=== PATIENT | female | born 1950 | race Caucasian/White ===

== ENCOUNTER 2020-08-18 00:51 | Inpatient (IN) | payer MEDICARE, OTHER ==
[2020-08-18] MEDS ORDERED: Piperacillin/Tazobactam 4.5 GM VIAL ONE (01:13)
[2020-08-18 01:36] LABS: Bacteria/HPF 4+ HPF (None Seen); Bilirubin Negative (Negative); Blood, Urine Negative (Negative); Clarity Turbid (Clear); Glucose, Urine (Dipstick) Normal (Negative); Ketone, Urine Trace mg/dL (Negative); Leukocyte 75 Leu/uL (Negative); Nitrite Negative (Negative); Protein, Urine (Dipstick) 30 mg/dL (Neg-Trace); RBC/HPF 0-3 HPF (0-3); Specific Gravity, Urine 1.018 (1.002-1.036); Squamous Epithelial 0-3 HPF (0-3); pH, Urine 5.5 (5.0-9.0)
[2020-08-18 01:43] LABS: Mean Corpuscular HGB CONC 31.8 g/dL (32.0-36.0); Mean Corpuscular Volume 94.4 fL (78.0-98.0); Mean Platelet Volume 7.5 fL (7.4-10.4); Platelet Count 270 thou/uL (130-400); RBC Distribution Width 12.9 % (11.5-14.5); Red Blood Cell (RBC) Count 5.01 mill/uL (4.20-5.40); White Blood Cell (WBC) Count 5.6 thou/uL (4.8-10.8)
[2020-08-18 01:56] LABS: ALT (SGPT) 18 U/L (8-55); AST (SGOT) 24 U/L (5-34); Albumin 3.6 g/dL (3.4-4.8); Alkaline Phosphatase 66 U/L (40-110); Anion Gap 18 mmol/L (10-20); BUN (Urea Nitrogen) 38 mg/dL (9.8-20.1); Bilirubin, Total 1.8 mg/dL (0.2-1.2); Calc. Creatinine Clearance 0 mL/min (70-130); Calcium 8.8 mg/dL (7.8-10.44); Carbon Dioxide 21 mmol/L (23-31); Chloride 104 mmol/L (98-107); Estimated GFR-MDRD 31; Globulin 2.8 g/dL (2.4-3.5); Glucose 94 mg/dL (80-115); Potassium 4.5 mmol/L (3.5-5.1); Protein, Total 6.4 g/dL (6.0-8.3); Sodium 138 mmol/L (136-145)
[2020-08-18 02:02] LABS: Band 31 % (5-11); Eosinophils 2 % (0-10); Lymphocytes 16 % (21-51); MDiff Complete? YES; Metamyelocyte 7 % (0-0); Monocytes 9 % (0-10); Myelocyte 3 % (0-0); Neutrophil 32 % (42-75)
[2020-08-18] MEDS ORDERED: Aspirin Chewable 81 MG TAB ONE (02:11)
[2020-08-18 02:23] LABS: CKMB 3.2 ng/mL (0-6.6)
[2020-08-18] MEDS ORDERED: Vancomycin 1 GM/200 ML BAG ONE (02:46)
--- NOTE | 2020-08-18 02:55 | PDOC.FPRHP ---
- History of Present Illness Chief Complaint: Abd pain History of Present Illness: Pt is a 69yo female with hx of methamphetamine and tobacco abuse who presents with AMS. The patient states that she is not sure why she was brought to the hospital. She says she has no complaints. She lives with "some people" in her home, and she thinks there might be an ulterior motive as to why they called EMS. She admits to smoking meth every day, but denies any IV drug use. EMS said she was hypotensive on scene, corrected it IVF. In ED she was found to have a fever and was altered, not able to give her or answer many questions. We were unable to call any family as she is not sure of the numbers and can't seem to work her phone. Denies fever, cough, SOB, CP, diarrhea, constipation, dysuria, urinary hesitancy or frequency. [facility], does not have PCP. ED Course: 1L NS, Zosyn, Vanc - Allergies/Adverse Reactions Allergies Allergy/AdvReac Type Severity Reaction Status Date / Time No Known Allergies Allergy Unverified 08/18/20 03:31 - History PMHx: none PSHx: shoulder surgery FHx: none Social: tobacco: smokes 1-2ppd, no alcohol, smokes meth every day. Lives at her home with her grandson and "some other people" - Review of Systems General: denies: fever/chills, weight/appetite/sleep changes Eyes: denies: eye pain, vision changes ENT: denies: nasal congestion, rhinorrhea Respiratory: denies: cough, shortness of breath Cardiovascular: denies: chest pain, edema Gastrointestinal: denies: nausea, vomiting, diarrhea, constipation, abdominal p ain Genitourinary: denies: incontinence, dysuria Skin: denies: rashes, itching Musculoskeletal: denies: pain, tenderness Neurological: denies: numbness, syncope Psychological: denies: anxiety - Vital signs BP: 114/79, HR 85, RR 20, T 98.6F, 95% on 2L - Physical Exam Constitutional: NAD -Constitutional: AO x 2, couldn't state the year HEENT: normocephalic and atraumatic, grossly normal vision, grossly normal hearing -HEENT: scleral icterus Neck: supple, FROM Heart: RRR, normal S1/S2 -Heart: 2/6 systolic murmur heard at upper sternal border, did not radiate to carotids Lungs: CTAB, no respiratory distress Abdomen: soft, non-tender, bowel sounds present, no masses/distention -Musculoskeletal: scoliosis of spine Neurological: no focal deficit Skin: no rash/lesions -Skin: cap refill 3secs Heme/Lymphatic: no unusual bruising or bleeding FMR H&P: Results - Labs Result Diagrams: 08/18/20 01:22 08/18/20 01:22 Lab results: WBC 5.6 thou/uL (4.8-10.8) 08/18/20 01:22 Hgb 15.0 g/dL (12.0-16.0) 08/18/20 01:22 Hct 47.3 % (36.0-47.0) H 08/18/20 01:22 MCV 94.4 fL (78.0-98.0) 08/18/20 01:22 Plt Count 270 thou/uL (130-400) 08/18/20 01:22 Band Neuts % (Manual) 31 % (5-11) H 08/18/20 01:22 Sodium 138 mmol/L (136-145) 08/18/20 01:22 Potassium 4.5 mmol/L (3.5-5.1) 08/18/20 01:22 Chloride 104 mmol/L (98-107) 08/18/20 01:22 Carbon Dioxide 21 mmol/L (23-31) L 08/18/20 01:22 BUN 38 mg/dL (9.8-20.1) H 08/18/20 01:22 Creatinine 1.63 mg/dL (0.6-1.1) H 08/18/20 01:22 Glucose 94 mg/dL (80-115) 08/18/20 01:22 Lactic Acid 3.4 mmol/L (0.5-2.2) H 08/18/20 01:22 Calcium 8.8 mg/dL (7.8-10.44) 08/18/20 01:22 Total Bilirubin 1.8 mg/dL (0.2-1.2) H 08/18/20 01:22 AST 24 U/L (5-34) 08/18/20 01:22 ALT 18 U/L (8-55) 08/18/20 01:22 Alkaline Phosphatase 66 U/L (40-110) 08/18/20 01:22 CK-MB (CK-2) 3.2 ng/mL (0-6.6) 08/18/20 01:22 Serum Total Protein 6.4 g/dL (6.0-8.3) 08/18/20 01:22 Albumin 3.6 g/dL (3.4-4.8) 08/18/20 01:22 Urine Ketones Trace mg/dL (Negative) A 08/18/20 01:20 Urine Blood Negative (Negative) 08/18/20 01:20 Urine Nitrite Negative (Negative) 08/18/20 01:20 Ur Leukocyte Esterase 75 Rene/uL (Negative) A 08/18/20 01:20 Urine RBC 0-3 HPF (0-3) 08/18/20 01:20 Urine WBC 4-6 HPF (0-3) A 08/18/20 01:20 Ur Squamous Epith Cells 0-3 HPF (0-3) 08/18/20 01:20 Urine Bacteria 4+ HPF (None Seen) A 08/18/20 01:20 - EKG Interpretation EKG: reviewed, sinus rhythm, no ST changes FMR H&P: A/P - Plan #sepsis 2/2 PNA and UTI -Tmax 102.5 in ED,WBC 5.6 Bands 31, lactic acid 3.4 -CT Ab/Pelv: RLL PNA -UA: bact, WBC, leuk -COVID neg -given Vanc and Zosyn in ED; changed to Azithro and Ceftriaxone to cover CAP and UTI -pending procal -Given 1L NS in ED, will place on maintenance fluids -bladder looked distended on CT, pt denies urinary sx, consider bladder scan #Acute Hypoxic Resp Failure 2/2 PNA -O2 sats in the 80s on RA, corrected on 2L NC, does not use oxygen at home -wean as tolerated -duonebs prn #Abdominal pain -CT abd/pelv showed retained stool -ordered miralax, enema, docusate #Elevated troponin -0.9, will trend #tobacco abuse -encourage cessation #Drug abuse -UDS positive for methamphetamines -complicated social situation, consider case managment consult FMR H&P: Upper Level - Plan Date/Time: 08/18/20 [id number] Ms Valles is a 69yo female who presented from home via EMS, called by friends reportedly for abdominal pain. In route she was noted to have BP of 82/57. SpO2 84% on RA. Was given 500ml NS. Currently denies abdominal pain, SOB, cough, fever, dysuria, frequency. Last BM yesterday. Reports social issues at her house causing friends to call EMS. Expresses she would like to go home. PE: Tmax 102.5. General: NAD. Oriented to person, place but not time CV: RRR, systolic murmur no radiation to carotids. Pulm: Diminished breath sounds in RLL Abdomen: Nontender. Dull to percussion Extremities: No edema A/P: Sepsis 2/2 Pneumonia & UTI -Fever 102.5, bands, initially hypotensive- resolved with IVF. Abdomen/Pelvis CT preformed due to family stating pt had abd/pain revealed pneumonia. UTI consistent with infection. Lactic acid 3.4. Blood and urine cultures pending. Started on Vanc and Zosyn in ED, will continue Azithromycin and Ceftriaxone. Ordered procal. 1L NS in ED, continue LR @75. Admit to tele due to elevated troponin. Acute Hypoxic Respiratory Failure 2/2 Pneumonia -Initially 84% on RA, currently high 90s on 2L. Wean as tolerated. Continue antibiotics. Duonebs PRN. Abdominal Pain -Likely 2/2 constipation. Will start aggressive bowel regimen LAXMI vs CKD -Cr 1.63 with unknown baseline. s/p 1L NS. Continue gentle hydration. BMP in AM Elevated Troponin -0.907, EKG with no signs of acute ischemia. Monitor on tele. Prolonged QT -QTc 511 I, Maggie Mascorro, have evaluated this patient and agree with findings/plan as outlined by chemist intern resident. Pertinent changes/additions are listed here. Addendum - Attending - Attending Attestation Date/Time: 08/18/20 2338 I personally evaluated the patient and discussed the management with Dr. Renteria. I agree with the History, Examination, Assessment and Plan documented above with any addition or exceptions noted below.
[2020-08-18 03:19] LABS: Amphetamine Detected (NotDetected); Barbiturates Screen Not Detected (NotDetected); Benzodiazepine Screen Not Detected (NotDetected); Cocaine Metabolite Screen Not Detected (NotDetected); Medtox Control Line Valid? VALID (VALID); Medtox Reader # READER 4; Methadone Not Detected (NotDetected); Methamphetamine Detected (NotDetected); Opiate Screen Not Detected (NotDetected); Oxycodone Screen Not Detected (NotDetected); Phencyclidine (PCP) Not Detected (NotDetected); THC/Cannabinoid Screen Not Detected (NotDetected); Tricyclic Screen Not Detected (NotDetected)
[2020-08-18] MEDS ORDERED: Ondansetron ODT 4 MG TAB PO PRN (03:22)
[2020-08-18] MEDS ORDERED: Ondansetron PF 4 MG/2 ML Vial IVP PRN (03:22)
[2020-08-18] MEDS ORDERED: Acetaminophen 650 MG Suppository PR PRN (03:22)
[2020-08-18] MEDS ORDERED: Milk Of Magnesia 30 ML UDCUP PO PRN (03:46)
[2020-08-18] MEDS ORDERED: Polyethylene Glycol 3350 17 GM Packet PO SCH (04:00)
[2020-08-18 04:09] LABS: SARS-CoV-2 NAA Rapid Test Not Detected (NotDetected)
[2020-08-18 04:50] LABS: Lactic Acid 3.1 mmol/L (0.5-2.2)
[2020-08-18 05:03] LABS: Critical Call Chem Troponin I RESULT DECREASING; Troponin I 0.845 ng/mL (< 0.028)
[2020-08-18 05:33] VITALS: BMI 19.0
[2020-08-18 07:37] LABS: Legionella Urinary Ag Negative (Negative); Strep pneumo Urine Ag POSITIVE (NEGATIVE)
[2020-08-18 07:54] LABS: Troponin I 0.943 ng/mL (< 0.028)
--- NOTE | 2020-08-18 08:01 | CT ---
PRELIMINARY REPORT/[facility]/EMERGENCY AFTER HOURS PROCEDURE: EXAM: CT Abdomen and Pelvis with Intravenous Contrast CLINICAL HISTORY: FAMILY REPORTS PT C/O ABD PAIN AND BACK PAIN X2 DAYS. PT IS POOR HISTORIAN TECHNIQUE: Axial computed tomography images of the abdomen and pelvis with intravenous contrast. CONTRAST: With; 60ML ISOVUE 370 COMPARISON: None provided. FINDINGS: LUNG BASES: There is infiltrate and consolidation in the right lower lobe. LIVER: Unremarkable. GALLBLADDER AND BILE DUCTS: Gallbladder is distended. No gallstone. PANCREAS: Unremarkable. SPLEEN: Unremarkable. ADRENAL GLANDS: Unremarkable. KIDNEYS, URETERS, AND BLADDER: Unremarkable. No hydronephrosis or nephrolithiasis. No ureteral or yevgeniy dder calculi. STOMACH AND BOWEL: No obstruction. No wall thickening. No CT evidence of colitis or acute diverticuli tis. APPENDIX: No CT evidence for appendicitis. PERITONEUM: No free fluid. No free air. LYMPH NODES: No lymphadenopathy. REPRODUCTIVE: Unremarkable as visualized. VASCULATURE: No aortic aneurysm. BONES: There is a [id number] scoliosis of the thoracic and lumbar spine. ABDOMINAL WALL AND SOFT TISSUES: Unremarkable. IMPRESSION: There is infiltrate and consolidation in the right lower lobe. ELECTRONICALLY SIGNED BY: Heidy Neumann MD Aug 18, 2020 2:34:15 AM CDT FINAL REPORT CT ABDOMEN AND PELVIS WITH IV CONTRAST: I agree with the report given by Dr. Heidy Neumann of [facility]. Transcribed Date/Time: 08/18/2020 8:05 AM
[2020-08-18] MEDS: Lactated Ringer's 1,000 ML IV SCH ×2 (08:03→20:22)
[2020-08-18] MEDS: Piperacillin/Tazobactam 4.5 GM in Sodium Chloride 0.9% 100 ML IVPB SCH ×3 (08:10→20:22)
[2020-08-18] MEDS: Docusate 100 MG CAP PO SCH ×2 (08:19→20:23)
[2020-08-18] MEDS: Enoxaparin Sodium 30 MG/0.3 ML SYRINGE SC SCH (08:19)
[2020-08-18 08:44] LABS: Actual Bicarbonate (HCO3a) 19.5 mEq/L (22-28); Base Excess (BEa) -3.6 mEq/L (-2.0 to +3.0); CO2 Tension 29.7 mmHg (35.0-45.0); Calcium, Ionized (arterial) 1.12 mmol/L (1.12-1.30); Carboxyhemoglobin (COHb) 0.7 gm% (0.0-3.0); Hemoglobin (Hb) 13.3 g/dL (12.0-16.0); Potassium - ABG Lab 3.89 mmol/L (3.70-5.30); pH, Arterial 7.44 (7.35-7.45)
[2020-08-18] MEDS ORDERED: Enoxaparin Sodium 40 MG/0.4 ML SYRINGE SC SCH (09:00)
[2020-08-18] MEDS: cefTRIAXone\\ROCEPHIN 1 GM in Sodium Chloride 0.9% 100 ML IVPB SCH (09:00)
[2020-08-18] MEDS ORDERED: Furosemide 20 MG/2 ML VIAL SLOW IVP SCH (09:00)
[2020-08-18 09:02] LABS: O2 Tension (PaO2), arterial 54.3 mmHg (> 80.0); Puncture Site LB
--- NOTE | 2020-08-18 09:08 | RAD ---
CHEST 1 VIEW: Date: 08/18/2020 HISTORY: Shortness of breath. Increased O2 requirements. FINDINGS: Heart size appears borderline. The aorta is very tortuous. There is elevation of the right hemidiaphr agm. There is right parahilar and lower lobe infiltrative appearing lung changes seen. IMPRESSION: Right-sided parenchymal lung changes appear to represent a pneumonic process, more in the parahilar r egion. POS: WINNIE
[2020-08-18] MEDS: Azithromycin 500 MG in Sodium Chloride 0.9% 250 ML 250 ML IVPB SCH (09:32)
[2020-08-18] MEDS ORDERED: Calcium Carbonate 500 MG ChewTAB PO PRN (10:28)
[2020-08-18] MEDS ORDERED: Iopamidol 370 76% 100 ML VIAL ONE (10:33)
[2020-08-18 11:37] LABS: Actual Bicarbonate (HCO3a) 21.3 mEq/L (22-28); Base Excess (BEa) -1.9 mEq/L (-2.0 to +3.0); CO2 Tension 31.8 mmHg (35.0-45.0); Calcium, Ionized (arterial) 1.08 mmol/L (1.12-1.30); Carboxyhemoglobin (COHb) 0.5 gm% (0.0-3.0); Hemoglobin (Hb) 13.4 g/dL (12.0-16.0); Potassium - ABG Lab 3.83 mmol/L (3.70-5.30); pH, Arterial 7.44 (7.35-7.45)
[2020-08-18 11:39] LABS: O2 Tension (PaO2), arterial 58.4 mmHg (> 80.0); Puncture Site RR
[2020-08-18] MEDS: Acetaminophen 325 MG TAB PO PRN (20:21)
--- NOTE | 2020-08-18 20:58 | CON ---
DATE OF CONSULTATION: 08/18/2020 HISTORY OF PRESENT ILLNESS: Ms. Valles is a 69-year-old female, who was admitted with confusion. She does not remember coming to the hospital. She does admit to smoking meth. She cannot tell me where she gets it or who manufactures it. She says she has not been smoking now for that long. She says she feels better at this time. PAST MEDICAL HISTORY: Remarkable for shoulder surgery. SOCIAL HISTORY: She is a two pack-a-day smoker. Smokes meth everyday. Apparently lives with her grandson. REVIEW OF SYSTEMS: Ten points otherwise negative. PHYSICAL EXAMINATION: GENERAL: She is in no distress. VITAL SIGNS: She is afebrile. Heart rate is 93, blood pressure 100/63. HEENT: Pupils are equal. Sclerae are anicteric. NECK: Supple. LUNGS: Clear. HEART: Regular rhythm. S1 and S2 are normal. She has grade 2/6 systolic murmur. ABDOMEN: Soft and nontender. EXTREMITIES: Without clubbing, cyanosis, or edema. DIAGNOSTIC STUDIES: Chest radiograph shows right lower lobe infiltrate. IMPRESSION: Possible pneumonia versus aspiration pneumonitis versus an inflammatory process involving her lungs that are related to her chronic meth use. I agree with empiric antimicrobial therapy. Her oxygen can be weaned down to saturation of 90 to 92. She could probably be switched to a nasal cannula. It was explained to her that at 69 years of age, ongoing methamphetamine use will dramatically shorten her life. This is a 50 min consult with greater than 50% of the time spent on the unit with coordination of care. Job ID: [id number] MTDD
[2020-08-19] MEDS: Piperacillin/Tazobactam 4.5 GM in Sodium Chloride 0.9% 100 ML IVPB SCH ×4 (01:42→20:18)
[2020-08-19 03:53] LABS: ALT (SGPT) 17 U/L (8-55); AST (SGOT) 26 U/L (5-34); Albumin 2.5 g/dL (3.4-4.8); Alkaline Phosphatase 55 U/L (40-110); Anion Gap 13 mmol/L (10-20); BUN (Urea Nitrogen) 34 mg/dL (9.8-20.1); Bilirubin, Total 1.1 mg/dL (0.2-1.2); Calc. Creatinine Clearance 38 mL/min (70-130); Calcium 7.7 mg/dL (7.8-10.44); Carbon Dioxide 21 mmol/L (23-31); Chloride 106 mmol/L (98-107); Estimated GFR-MDRD 48; Globulin 2.4 g/dL (2.4-3.5); Glucose 91 mg/dL (80-115); Potassium 3.6 mmol/L (3.5-5.1); Protein, Total 4.9 g/dL (6.0-8.3); Sodium 136 mmol/L (136-145)
[2020-08-19 06:41] LABS: Hemoglobin 10.4 g/dL (12.0-16.0); Mean Corpuscular HGB CONC 33.1 g/dL (32.0-36.0); Mean Corpuscular Hemoglobin 30.7 pg (27.0-31.0); Mean Corpuscular Volume 92.8 fL (78.0-98.0); Mean Platelet Volume 7.6 fL (7.4-10.4); Platelet Count 187 thou/uL (130-400); RBC Distribution Width 12.6 % (11.5-14.5); Red Blood Cell (RBC) Count 3.38 mill/uL (4.20-5.40); White Blood Cell (WBC) Count 11.6 thou/uL (4.8-10.8)
[2020-08-19 06:55] LABS: Band 42 % (5-11); Eosinophils 1 % (0-10); Lymphocytes 9 % (21-51); MDiff Complete? YES; Monocytes 4 % (0-10); Neutrophil 43 % (42-75); Platelet Morphology Comment Appears Adequate; Polychromasia SLIGHT = 2-3 cells (100X) (0-2/hpf); Reactive Lymphocytes 1 % (0-10)
[2020-08-19] MEDS: Lactated Ringer's 1,000 ML IV SCH ×2 (07:00→19:10)
--- NOTE | 2020-08-19 09:56 | PDOC.FM ---
- Subjective Subjective: Yesterday patient's respiratory status decompensated on the telemetry unit with increasing O2 requirement. Initially was placed on venturi mask and was transitioned to IMCU where was then placed on HFNC which patient has tolerated well. This morning patient states she feels like she is breathing easier but overall feels about the same as yesterday. Denies any complaints. Patient was unable to have code discussion with palliative team yesterday. Patient stated that she did not trust her grandson to make decision for her. She has a brother but is unsure how to contact him. There are no other friends or family members that she says she trusts. She does state at this point she would be okay with physician team to make decisions for her if it came to that point. - Objective MAR Reviewed: Yes Vital Signs & Weight: Vital Signs (12 hours) Temp Pulse Ox 08/19/20 07:41 98.6 F 08/19/20 07:19 98 08/19/20 04:00 98.7 F 08/19/20 00:15 99.3 F 08/18/20 22:19 99.5 F Weight Weight 50.349 kg Most Recent Monitor Data Heart Rate from ECG 67 NIBP 94/64 NIBP BP-Mean 74 Respiration from ECG 11 SpO2 96 I&O: 08/18/20 08/19/20 08/20/20 06:59 06:59 06:59 Intake Total 2630 Output Total 1200 Balance 1430 Result Diagrams: 08/19/20 06:22 08/19/20 06:22 Phys Exam - Physical Examination Constitutional: NAD HEENT: moist MMs, sclera anicteric Neck: no JVD, supple, full ROM Respiratory: no wheezing decreased breath sounds in RLL Cardiovascular: RRR, no significant murmur Gastrointestinal: soft, non-tender, no distention, positive bowel sounds Musculoskeletal: no edema, pulses present Neurological: normal sensation, moves all 4 limbs Psychiatric: A&O x 3 Deviation from normal: flat affect Skin: no rash, normal turgor Dx/Plan (1) Sepsis due to Streptococcus pneumoniae with acute hypoxic respiratory failure Code(s): A40.3 - SEPSIS DUE TO STREPTOCOCCUS PNEUMONIAE; R65.20 - SEVERE SEPSIS WITHOUT SEPTIC SHOCK; J96.01 - ACUTE RESPIRATORY FAILURE WITH HYPOXIA Status: Acute Qualifiers: Severe sepsis shock status: without septic shock Qualified Code(s): A40.3 - Sepsis due to Streptococcus pneumoniae; R65.20 - Severe sepsis without septic shock; J96.01 - Acute respiratory failure with hypoxia (2) UTI (urinary tract infection) Status: Acute Qualifiers: Urinary tract infection type: acute cystitis Hematuria presence: without hematuria Qualified Code(s): N30.00 - Acute cystitis without hematuria (3) Methamphetamine abuse Code(s): F15.10 - OTHER STIMULANT ABUSE, UNCOMPLICATED Status: Acute (4) COPD (chronic obstructive pulmonary disease) Status: Acute Qualifiers: COPD type: COPD with acute exacerbation Qualified Code(s): J44.1 - Chronic obstructive pulmonary disease with (acute) exacerbation (5) Scoliosis Status: Acute Qualifiers: Scoliosis type: idiopathic Idiopathic scoliosis type: other Spinal region: cervicothoracic Qualified Code(s): M41.23 - Other idiopathic scoliosis, cervicothoracic region - Plan Plan: Patient is a 69 yo female who presents with AMS is found to have sepsis 2/2 PNA #Sepsis 2/2 PNA and UTI -Tmax 102.5 in ED,WBC 5.6 Bands 31, lactic acid 3.4 -CT Ab/Pelv: RLL PNA -CXR: RLL and parahilar PNA with consolidation -UA: bact 4+, WBC, leuk -COVID neg -given Vanc and Zosyn in ED; changed to Zosyn, Azithro, and Ceftriaxone to cover CAP and UTI (08/18) -Procal 31 > 24 -Given 1L NS in ED, will place on maintenance fluids LR @ 90 ml/h -monitor I/Os -Blood cultures 1 of 2 positive for beta-hemolytic strep on right arm (left arm cultures negative) -Urine Strep pneumo antigen positive -Urine culture pending -Pulmonology consulted, Dr. Gallardo, appreciate recommendations #Acute Hypoxic Resp Failure 2/2 PNA -O2 sats in the 80s on RA, corrected initially on 2L NC but desaturated with ultimately requiring HFNC currently (settings 35L, 40% FiO2) -does not use oxygen at home; wean as tolerated -duonebs prn #Abdominal pain, resolved -CT abd/pelv showed retained stool -ordered miralax, enema, docusate #Elevated troponin -0.9 > 0.845 > 0.943, stable -likely due to demand ischemia #Tobacco abuse -encourage cessation #Drug abuse -UDS positive for methamphetamines -complicated social situation, apparently lives with grandson and 9 indoor dogs -consider case management consult Diet: Regular VTE: Lovenox 30 Code status: FULL, currently okay with intubation, pending further discussion with Palliative Team Dispo: Stable, admitted to inpatient in IMCU unit. Continue to monitor respiratory status. Continue antibiotics. Anticipate discharge in >48 hours. Addendum - Attending - Attending Attestation Date/Time: 08/19/20 0132 I personally evaluated the patient and discussed the management with Dr. Renteria. I agree with the History, Examination, Assessment and Plan documented above with any addition or exceptions noted below.
[2020-08-19] MEDS: Furosemide 20 MG TAB PO SCH (10:50)
[2020-08-19] MEDS: Docusate 100 MG CAP PO SCH ×2 (10:50→20:19)
[2020-08-19] MEDS: Enoxaparin Sodium 30 MG/0.3 ML SYRINGE SC SCH (10:51)
[2020-08-19] MEDS: Polyethylene Glycol 3350 17 GM Packet PO SCH (10:51)
[2020-08-19] MEDS: cefTRIAXone\\ROCEPHIN 1 GM in Sodium Chloride 0.9% 100 ML IVPB SCH (10:57)
[2020-08-19] MEDS: Azithromycin 500 MG in Sodium Chloride 0.9% 250 ML 250 ML IVPB SCH (11:29)
[2020-08-19] MEDS: Acetaminophen 325 MG TAB PO PRN (20:19)
[2020-08-20] MEDS: Piperacillin/Tazobactam 4.5 GM in Sodium Chloride 0.9% 100 ML IVPB SCH ×4 (01:56→20:21)
[2020-08-20 03:42] LABS: ALT (SGPT) 14 U/L (8-55); AST (SGOT) 20 U/L (5-34); Albumin 2.4 g/dL (3.4-4.8); Alkaline Phosphatase 55 U/L (40-110); Anion Gap 13 mmol/L (10-20); BUN (Urea Nitrogen) 19 mg/dL (9.8-20.1); Bilirubin, Total 0.7 mg/dL (0.2-1.2); Calc. Creatinine Clearance 55 mL/min (70-130); Calcium 7.5 mg/dL (7.8-10.44); Carbon Dioxide 18 mmol/L (23-31); Chloride 110 mmol/L (98-107); Estimated GFR-MDRD 73; Globulin 2.4 g/dL (2.4-3.5); Glucose 79 mg/dL (80-115); Potassium 3.3 mmol/L (3.5-5.1); Protein, Total 4.8 g/dL (6.0-8.3); Sodium 138 mmol/L (136-145)
[2020-08-20 04:59] LABS: Band 8 % (5-11); Eosinophils 1 % (0-10); Hemoglobin 10.6 g/dL (12.0-16.0); Hypochromia SLIGHT = 6-15 cells (100X) (0-5/hpf); Lymphocytes 9 % (21-51); MDiff Complete? YES; Mean Corpuscular HGB CONC 31.2 g/dL (32.0-36.0); Mean Corpuscular Hemoglobin 29.6 pg (27.0-31.0); Mean Corpuscular Volume 94.7 fL (78.0-98.0); Monocytes 5 % (0-10); Neutrophil 77 % (42-75); Platelet Count 194 thou/uL (130-400); Platelet Morphology Comment Appears Adequate; RBC Distribution Width 12.7 % (11.5-14.5); Red Blood Cell (RBC) Count 3.57 mill/uL (4.20-5.40); White Blood Cell (WBC) Count 12.5 thou/uL (4.8-10.8)
[2020-08-20] MEDS: Lactated Ringer's 1,000 ML IV SCH ×2 (05:38→16:37)
[2020-08-20] MEDS ORDERED: Potassium Chloride 20 MEQ TAB PO SCH (09:15)
--- NOTE | 2020-08-20 09:17 | PDOC.FM ---
- Subjective Subjective: Patient feeling better this morning. She was able to be transitioned from HFNC to N/C yesterday afternoon. Is currently requiring 2-3L O2. States that her breathing feels somewhat better today. Her appetite has been okay, says it comes and goes. Denies any pain complaints this morning. - Objective MAR Reviewed: Yes Vital Signs & Weight: Vital Signs (12 hours) Temp Pulse Ox 08/20/20 08:00 95 08/20/20 07:21 99.5 F 08/20/20 04:00 98.8 F 08/20/20 00:00 99.1 F Weight Weight 50.349 kg Most Recent Monitor Data Heart Rate from ECG 83 NIBP 116/82 NIBP BP-Mean 93 Respiration from ECG 24 SpO2 88 I&O: 08/19/20 08/20/20 08/21/20 06:59 06:59 06:59 Intake Total 2630 2980 Output Total 1200 1240 Balance 1430 1740 Result Diagrams: 08/20/20 03:17 08/20/20 03:17 Phys Exam - Physical Examination Constitutional: NAD HEENT: moist MMs, sclera anicteric Neck: no JVD, supple, full ROM Respiratory: no wheezing decreased breath sounds in bilateral bases, worse on right Cardiovascular: RRR, no significant murmur Gastrointestinal: soft, non-tender, no distention Musculoskeletal: no edema, pulses present Neurological: normal sensation, moves all 4 limbs Psychiatric: A&O x 3 Deviation from normal: flat affect Skin: normal turgor Deviation from normal: heating pad monahan on back Dx/Plan (1) Sepsis due to Streptococcus pneumoniae with acute hypoxic respiratory failure Code(s): A40.3 - SEPSIS DUE TO STREPTOCOCCUS PNEUMONIAE; R65.20 - SEVERE SEPSIS WITHOUT SEPTIC SHOCK; J96.01 - ACUTE RESPIRATORY FAILURE WITH HYPOXIA Status: Acute Qualifiers: Severe sepsis shock status: without septic shock Qualified Code(s): A40.3 - Sepsis due to Streptococcus pneumoniae; R65.20 - Severe sepsis without septic shock; J96.01 - Acute respiratory failure with hypoxia (2) UTI (urinary tract infection) Status: Acute Qualifiers: Urinary tract infection type: acute cystitis Hematuria presence: without hematuria Qualified Code(s): N30.00 - Acute cystitis without hematuria (3) Methamphetamine abuse Code(s): F15.10 - OTHER STIMULANT ABUSE, UNCOMPLICATED Status: Acute (4) COPD (chronic obstructive pulmonary disease) Status: Acute Qualifiers: COPD type: COPD with acute exacerbation Qualified Code(s): J44.1 - Chronic obstructive pulmonary disease with (acute) exacerbation (5) Scoliosis Status: Acute Qualifiers: Scoliosis type: idiopathic Idiopathic scoliosis type: other Spinal region: cervicothoracic Qualified Code(s): M41.23 - Other idiopathic scoliosis, cervicothoracic region - Plan Plan: Patient is a 69 yo female who presents with AMS is found to have sepsis 2/2 PNA #Sepsis 2/2 PNA and UTI -Tmax 102.5 in ED,WBC 5.6 Bands 31, lactic acid 3.4 -CT Ab/Pelv: RLL PNA -CXR: RLL and parahilar PNA with consolidation -UA: bact 4+, WBC, leuk -COVID neg -given Vanc and Zosyn in ED; changed to Zosyn, Azithro, and Ceftriaxone to cover CAP and UTI (08/18) -Procal 31 > 24 > 14 -Given 1L NS in ED, currently on maintenance fluids LR @ 90 ml/h -monitor I/Os -Blood cultures 1 of 2 positive for beta-hemolytic strep & gram positive sayra on right arm (left arm cultures negative) -Urine Strep pneumo antigen positive -Urine culture positive for E. Coli -resistance to Levaquin and Cipro -Pulmonology consulted, Dr. Gallardo, appreciate recommendations #Acute Hypoxic Resp Failure 2/2 PNA -O2 sats in the 80s on RA, corrected initially on 2L NC but desaturated with ultimately requiring HFNC from 08/18- -transitioned back to 2L N/C on afternoon of 08/19 -does not use oxygen at home; wean as tolerated -joanne prn -place incentive spirometry at bedside #Abdominal pain, resolved -CT abd/pelv showed retained stool -ordered miralax, enema, docusate #Elevated troponin -0.9 > 0.845 > 0.943, stable -likely due to demand ischemia #Tobacco abuse -encourage cessation #Drug abuse -UDS positive for methamphetamines -complicated social situation, apparently lives with grandson and 9 indoor dogs -consider case management consult closer to discharge Diet: Regular VTE: Lovenox 30 Code status: FULL, currently okay with intubation, pending further discussion with Palliative Team Dispo: Stable, admitted to inpatient on medical unit (currently in IMCU due to awaiting bed). Continue to monitor respiratory status. Continue antibiotics. Anticipate discharge in >48 hours. Addendum - Attending - Attending Attestation Date/Time: 08/20/20 1853 I personally evaluated the patient and discussed the management with Dr. Renteria. I agree with the History, Examination, Assessment and Plan documented above with any addition or exceptions noted below.
[2020-08-20] MEDS: Azithromycin 500 MG in Sodium Chloride 0.9% 250 ML 250 ML IVPB SCH (10:02)
[2020-08-20] MEDS: Furosemide 20 MG TAB PO SCH (10:03)
[2020-08-20] MEDS: cefTRIAXone\\ROCEPHIN 1 GM in Sodium Chloride 0.9% 100 ML IVPB SCH (10:03)
[2020-08-20] MEDS: Polyethylene Glycol 3350 17 GM Packet PO SCH (10:04)
[2020-08-20] MEDS: Enoxaparin Sodium 30 MG/0.3 ML SYRINGE SC SCH (10:04)
[2020-08-20] MEDS: Docusate 100 MG CAP PO SCH ×2 (10:04→19:58)
[2020-08-21] MEDS: Piperacillin/Tazobactam 4.5 GM in Sodium Chloride 0.9% 100 ML IVPB SCH ×4 (01:49→20:48)
[2020-08-21] MEDS: Lactated Ringer's 1,000 ML IV SCH ×3 (03:05→23:35)
[2020-08-21 06:54] LABS: ALT (SGPT) 18 U/L (8-55); AST (SGOT) 18 U/L (5-34); Albumin 2.6 g/dL (3.4-4.8); Alkaline Phosphatase 71 U/L (40-110); Anion Gap 11 mmol/L (10-20); BUN (Urea Nitrogen) 10 mg/dL (9.8-20.1); Bilirubin, Total 0.6 mg/dL (0.2-1.2); Calc. Creatinine Clearance 56 mL/min (70-130); Calcium 7.9 mg/dL (7.8-10.44); Carbon Dioxide 23 mmol/L (23-31); Chloride 110 mmol/L (98-107); Estimated GFR-MDRD 75; Globulin 2.8 g/dL (2.4-3.5); Glucose 78 mg/dL (80-115); Potassium 3.6 mmol/L (3.5-5.1); Protein, Total 5.4 g/dL (6.0-8.3); Sodium 140 mmol/L (136-145)
[2020-08-21 06:55] LABS: Hemoglobin 10.7 g/dL (12.0-16.0); Mean Corpuscular HGB CONC 31.7 g/dL (32.0-36.0); Mean Corpuscular Hemoglobin 29.7 pg (27.0-31.0); Mean Corpuscular Volume 93.7 fL (78.0-98.0); Mean Platelet Volume 7.9 fL (7.4-10.4); Platelet Count 244 thou/uL (130-400); RBC Distribution Width 12.6 % (11.5-14.5); Red Blood Cell (RBC) Count 3.61 mill/uL (4.20-5.40); White Blood Cell (WBC) Count 8.9 thou/uL (4.8-10.8)
[2020-08-21 08:02] LABS: Band 11 % (5-11); Eosinophils 1 % (0-10); Lymphocytes 16 % (21-51); MDiff Complete? YES; Metamyelocyte 1 % (0-0); Monocytes 5 % (0-10); Neutrophil 66 % (42-75); Platelet Morphology Comment Appears Adequate; Polychromasia SLIGHT = 2-3 cells (100X) (0-2/hpf)
[2020-08-21] MEDS: Polyethylene Glycol 3350 17 GM Packet PO SCH (08:38)
[2020-08-21] MEDS: Docusate 100 MG CAP PO SCH ×2 (08:38→20:48)
[2020-08-21] MEDS: cefTRIAXone\\ROCEPHIN 1 GM in Sodium Chloride 0.9% 100 ML IVPB SCH (08:39)
[2020-08-21] MEDS: Enoxaparin Sodium 30 MG/0.3 ML SYRINGE SC SCH (08:40)
[2020-08-21] MEDS: Furosemide 20 MG TAB PO SCH (08:41)
--- NOTE | 2020-08-21 09:39 | PDOC.FM ---
- Subjective Subjective: Patient feeling better this morning. She has been tolerating trials off N/C intermittently but overall is mostly still requiring 2L O2. States that her breathing feels somewhat better again today. Denies any pain complaints this morning. PT/OT consulted to evaluate for possible placement. - Objective MAR Reviewed: Yes Vital Signs & Weight: Vital Signs (12 hours) Temp Pulse Resp BP BP Pulse Ox 08/21/20 07:59 99.0 F 66 14 156/87 H 93 L 08/21/20 01:57 80 95 08/21/20 00:00 99.5 F 72 20 156/79 H 91 L Weight Weight 50.349 kg Most Recent Monitor Data Heart Rate from ECG 68 NIBP 130/79 NIBP BP-Mean 96 Respiration from ECG 35 SpO2 100 I&O: 08/20/20 08/21/20 08/22/20 06:59 06:59 06:59 Intake Total 2980 2080 Output Total 1240 Balance 1740 2080 Result Diagrams: 08/21/20 05:52 08/21/20 05:52 Phys Exam - Physical Examination Constitutional: NAD HEENT: moist MMs Neck: no JVD, supple, full ROM Respiratory: no wheezing Decreased breath sounds in RLL. Otherwise CTA. Cardiovascular: RRR, no significant murmur Gastrointestinal: soft, non-tender, no distention Musculoskeletal: no edema, pulses present Neurological: normal sensation, moves all 4 limbs Psychiatric: normal affect, A&O x 3 Skin: no rash Dx/Plan (1) Sepsis due to Streptococcus pneumoniae with acute hypoxic respiratory failure Code(s): A40.3 - SEPSIS DUE TO STREPTOCOCCUS PNEUMONIAE; R65.20 - SEVERE SEPSIS WITHOUT SEPTIC SHOCK; J96.01 - ACUTE RESPIRATORY FAILURE WITH HYPOXIA Status: Acute Qualifiers: Severe sepsis shock status: without septic shock Qualified Code(s): A40.3 - Sepsis due to Streptococcus pneumoniae; R65.20 - Severe sepsis without septic shock; J96.01 - Acute respiratory failure with hypoxia (2) UTI (urinary tract infection) Status: Acute Qualifiers: Urinary tract infection type: acute cystitis Hematuria presence: without hematuria Qualified Code(s): N30.00 - Acute cystitis without hematuria (3) Methamphetamine abuse Code(s): F15.10 - OTHER STIMULANT ABUSE, UNCOMPLICATED Status: Acute (4) COPD (chronic obstructive pulmonary disease) Status: Acute Qualifiers: COPD type: COPD with acute exacerbation Qualified Code(s): J44.1 - Chronic obstructive pulmonary disease with (acute) exacerbation (5) Scoliosis Status: Acute Qualifiers: Scoliosis type: idiopathic Idiopathic scoliosis type: other Spinal region: cervicothoracic Qualified Code(s): M41.23 - Other idiopathic scoliosis, cervicothoracic region - Plan Plan: Patient is a 69 yo female who presents with AMS is found to have sepsis 2/2 PNA #Sepsis 2/2 PNA and UTI -Tmax 102.5 in ED,WBC 5.6 Bands 31, lactic acid 3.4 -CT Ab/Pelv: RLL PNA -CXR: RLL and parahilar PNA with consolidation -UA: bact 4+, WBC, leuk -COVID neg -given Vanc and Zosyn in ED; changed to Zosyn, Azithro, and Ceftriaxone to cover CAP and UTI (08/18) -Procal 31 > 24 > 14 -Given 1L NS in ED, currently on maintenance fluids LR @ 90 ml/h -monitor I/Os -Blood cultures 1 of 2 positive for Group G strep & gram positive sayra on right arm (left arm cultures negative) -Urine Strep pneumo antigen positive -Urine culture positive for E. Coli -resistance to Levaquin and Cipro -Pulmonology consulted, Dr. Gallardo, appreciate recommendations #Acute Hypoxic Resp Failure 2/2 PNA -O2 sats in the 80s on RA, corrected initially on 2L NC but desaturated with ultimately requiring HFNC from 08/18- -transitioned back to 2L N/C on afternoon of 08/19 -does not use oxygen at home; wean as tolerated -joanne prn -place incentive spirometry at bedside #Abdominal pain, resolved -CT abd/pelv showed retained stool -ordered miralax, enema, docusate #Elevated troponin -0.9 > 0.845 > 0.943, stable -likely due to demand ischemia #Tobacco abuse -encourage cessation #Drug abuse -UDS positive for methamphetamines -complicated social situation, apparently lives with grandson and 9 indoor dogs -consider case management consult closer to discharge #Deconditioning -patient appears frail, admits to becoming weaker in recent months and requiring more assistance with ADLs and home maintenance -PT/OT consulted for possible rehab vs SNF placement -CM consulted for difficult social situation, patient currently under investigation by [facility] for having unsafe home situation. Apparently issues with having 9 indoor animals with unsanitary conditions and areas of trash outside home. Diet: Regular VTE: Lovenox 30 Code status: FULL, currently okay with intubation, pending further discussion with Palliative Team Dispo: Stable, admitted to inpatient on medical unit. Continue to monitor resp iratory status. Continue antibiotics. Anticipate discharge in <48 hours. Addendum - Attending - Attending Attestation Date/Time: 08/21/20 3959 I personally evaluated the patient and discussed the management with Dr. Renteria. I agree with the History, Examination, Assessment and Plan documented above with any addition or exceptions noted below.
[2020-08-21] MEDS: Azithromycin 500 MG in Sodium Chloride 0.9% 250 ML 250 ML IVPB SCH (12:15)
[2020-08-22] MEDS: Piperacillin/Tazobactam 4.5 GM in Sodium Chloride 0.9% 100 ML IVPB SCH ×3 (02:46→14:18)
[2020-08-22 05:47] LABS: Band 19 % (5-11); Eosinophils 1 % (0-10); Lymphocytes 21 % (21-51); MDiff Complete? YES; Mean Corpuscular HGB CONC 32.9 g/dL (32.0-36.0); Mean Corpuscular Hemoglobin 30.8 pg (27.0-31.0); Mean Corpuscular Volume 93.6 fL (78.0-98.0); Mean Platelet Volume 7.5 fL (7.4-10.4); Metamyelocyte 2 % (0-0); Monocytes 10 % (0-10); Neutrophil 46 % (42-75); Platelet Count 258 thou/uL (130-400); Platelet Morphology Comment Appears Adequate; RBC Distribution Width 12.6 % (11.5-14.5); Reactive Lymphocytes 1 % (0-10); Red Blood Cell (RBC) Count 3.58 mill/uL (4.20-5.40); White Blood Cell (WBC) Count 6.7 thou/uL (4.8-10.8)
[2020-08-22 05:50] LABS: ALT (SGPT) 25 U/L (8-55); AST (SGOT) 29 U/L (5-34); Albumin 2.7 g/dL (3.4-4.8); Alkaline Phosphatase 71 U/L (40-110); Anion Gap 12 mmol/L (10-20); BUN (Urea Nitrogen) 9 mg/dL (9.8-20.1); Bilirubin, Total 0.5 mg/dL (0.2-1.2); Calc. Creatinine Clearance 57 mL/min (70-130); Calcium 8.1 mg/dL (7.8-10.44); Carbon Dioxide 24 mmol/L (23-31); Chloride 109 mmol/L (98-107); Estimated GFR-MDRD 77; Globulin 2.7 g/dL (2.4-3.5); Glucose 86 mg/dL (80-115); Potassium 3.7 mmol/L (3.5-5.1); Protein, Total 5.4 g/dL (6.0-8.3); Sodium 141 mmol/L (136-145)
--- NOTE | 2020-08-22 07:54 | PDOC.FM ---
- Subjective Subjective: Patient feeling well this morning. Was able to tolerate being on room air overnight and this morning. Did get evaluated by PT & OT yesterday, did not recommend continued therapy in a facility. While working with PT the patient's O2 sat was 95%. Patient has no complaints this morning. - Objective MAR Reviewed: Yes Vital Signs & Weight: Vital Signs (12 hours) Pulse Ox 08/21/20 20:00 93 L Weight Admit Weight 50.349 kg Weight 50.349 kg Most Recent Monitor Data Heart Rate from ECG 68 NIBP 130/79 NIBP BP-Mean 96 Respiration from ECG 35 SpO2 100 I&O: 08/21/20 08/22/20 08/23/20 06:59 06:59 06:59 Intake Total 2079 1919 Balance 2079 1919 Result Diagrams: 08/22/20 05:02 08/22/20 05:02 Phys Exam - Physical Examination Constitutional: NAD HEENT: moist MMs, sclera anicteric Neck: no JVD, supple, full ROM Respiratory: no wheezing decreased breath sounds in RLL Cardiovascular: RRR, no significant murmur Gastrointestinal: soft, non-tender, no distention Musculoskeletal: no edema, pulses present Neurological: normal sensation, moves all 4 limbs Psychiatric: normal affect, A&O x 3 Skin: no rash Dx/Plan (1) Sepsis due to Streptococcus pneumoniae with acute hypoxic respiratory failure Code(s): A40.3 - SEPSIS DUE TO STREPTOCOCCUS PNEUMONIAE; R65.20 - SEVERE SEPSIS WITHOUT SEPTIC SHOCK; J96.01 - ACUTE RESPIRATORY FAILURE WITH HYPOXIA Status: Acute Qualifiers: Severe sepsis shock status: without septic shock Qualified Code(s): A40.3 - Sepsis due to Streptococcus pneumoniae; R65.20 - Severe sepsis without septic shock; J96.01 - Acute respiratory failure with hypoxia (2) UTI (urinary tract infection) Status: Acute Qualifiers: Urinary tract infection type: acute cystitis Hematuria presence: without hematuria Qualified Code(s): N30.00 - Acute cystitis without hematuria (3) Methamphetamine abuse Code(s): F15.10 - OTHER STIMULANT ABUSE, UNCOMPLICATED Status: Acute (4) COPD (chronic obstructive pulmonary disease) Status: Acute Qualifiers: COPD type: COPD with acute exacerbation Qualified Code(s): J44.1 - Chronic obstructive pulmonary disease with (acute) exacerbation (5) Scoliosis Status: Acute Qualifiers: Scoliosis type: idiopathic Idiopathic scoliosis type: other Spinal region: cervicothoracic Qualified Code(s): M41.23 - Other idiopathic scoliosis, cervicothoracic region - Plan Plan: Patient is a 69 yo female who presents with AMS is found to have sepsis 2/2 PNA #Sepsis 2/2 PNA and UTI -Tmax 102.5 in ED,WBC 5.6 Bands 31, lactic acid 3.4 -CT Ab/Pelv: RLL PNA -CXR: RLL and parahilar PNA with consolidation -UA: bact 4+, WBC, leuk -COVID neg -given Vanc and Zosyn in ED; changed to Zosyn, Azithro, and Ceftriaxone to cover CAP and UTI (08/18) -last dose of Azithro today -plan to transition to PO antibiotics upon discharge, anticipated later today -Procal 31 > 24 > 14 > 5.7 > 2.6 -Given 1L NS in ED, currently on maintenance fluids LR @ 90 ml/h -monitor I/Os -Blood cultures 1 of 2 positive for Group G strep & gram positive sayra on right arm (left arm cultures negative) -Urine Strep pneumo antigen positive -Urine culture positive for E. Coli -resistance to Levaquin and Cipro -Pulmonology consulted, Dr. Gallardo, appreciate recommendations #Acute Hypoxic Resp Failure 2/2 PNA -O2 sats in the 80s on RA, corrected initially on 2L NC but desaturated with ultimately requiring HFNC from 08/18- -transitioned back to 2L N/C on afternoon of 08/19 -off N/C on 08/21 PM -does not use oxygen at home; wean as tolerated -joanne prn -place incentive spirometry at bedside #Abdominal pain, resolved -CT abd/pelv showed retained stool -ordered miralax, enema, docusate #Elevated troponin -0.9 > 0.845 > 0.943, stable -likely due to demand ischemia #Tobacco abuse -encourage cessation #Drug abuse -UDS positive for methamphetamines -complicated social situation, apparently lives with grandson and 9 indoor dogs -case management consulted #Deconditioning -patient appears frail, admits to becoming weaker in recent months and requiring more assistance with ADLs and home maintenance -PT/OT consulted for possible rehab vs SNF placement--do not recommend continued therapy in facility -CM consulted for difficult social situation, patient currently under investigation by [facility] for having unsafe home situation. Apparently issues with having 9 indoor animals with unsanitary conditions and areas of trash outside home. Diet: Regular VTE: Lovenox 30 Code status: FULL Dispo: Stable, admitted to inpatient on medical unit. Switch to PO antibiotics. Anticipate discharge later today. Addendum - Attending - Attending Attestation Date/Time: 08/22/20 1211 I personally evaluated the patient and discussed the management with Dr. Renteria. I agree with the History, Examination, Assessment and Plan documented above with any addition or exceptions noted below.
[2020-08-22] MEDS: Azithromycin 500 MG in Sodium Chloride 0.9% 250 ML 250 ML IVPB SCH (07:56)
[2020-08-22] MEDS: Docusate 100 MG CAP PO SCH (07:57)
[2020-08-22] MEDS: Polyethylene Glycol 3350 17 GM Packet PO SCH (07:58)
[2020-08-22] MEDS: Furosemide 20 MG TAB PO SCH (07:58)
[2020-08-22] MEDS: Enoxaparin Sodium 30 MG/0.3 ML SYRINGE SC SCH (07:58)
[2020-08-22 08:06] VITALS: TEMP 99.2
[2020-08-22] MEDS: cefTRIAXone\\ROCEPHIN 1 GM in Sodium Chloride 0.9% 100 ML IVPB SCH (08:38)
[2020-08-22] MEDS ORDERED: Lisinopril 10 MG TAB PO SCH (09:30)
[2020-08-22] MEDS ORDERED: cloNIDine 0.1 MG TAB PO SCH (09:30)
[2020-08-22 11:21] VITALS: BP 129/82
[2020-08-22] MEDS: Lactated Ringer's 1,000 ML IV SCH (12:30)
--- NOTE | 2020-08-23 02:20 | DIS ---
DATE OF ADMISSION: 08/18/2020 DATE OF DISCHARGE: 08/22/2020 ADMITTING ATTENDING: Harman Valencia MD. CONSULTS: Pulmonology, Dr. Gallardo. PROCEDURES: 1. Abdomen and pelvis CT on August 18, 2020: There is infiltrate and consolidation in the right lower lobe. There is [id number] scoliosis of the thoracic and lumbar spine. 2. Chest x-ray on August 18, 2020: Right-sided parenchymal lung changes, appear to represent a pneumonic process, more in the parahilar region. There is elevation of the right hemidiaphragm. Heart size appears borderline. Aorta is very tortuous. PRIMARY DIAGNOSES: 1. Sepsis, secondary to pneumonia. 2. Urinary tract infection. 3. Acute hypoxic respiratory failure, secondary to pneumonia. SECONDARY DIAGNOSES: 1. Elevated troponin, likely due to demand ischemia. 2. Tobacco abuse. 3. Drug abuse, methamphetamines. 4. Deconditioning. DISCHARGE MEDICATIONS: 1. Augmentin 875/125 mg one tablet p.o. b.i.d. for 5 days. 2. Furosemide 20 mg p.o. daily. 3. Lisinopril 10 mg p.o. daily. DISCONTINUED MEDICATIONS: None. HISTORY OF PRESENT ILLNESS/HOSPITAL COURSE: The patient is a 69-year-old female, who presented with altered mental status on August 18, 2020. The patient admitted to smoking methamphetamines and using tobacco daily, but denied any IV drug use. Upon arrival, she was found to be hypotensive, but was responsive to IV fluids. She also had a fever of 102.5 Fahrenheit in the emergency department and complained of some abdominal and back pain. The patient was given 1 L of normal saline, Zosyn, and vancomycin in the emergency department and admitted to the telemetry unit. The patient was also found to have a white blood cell count of 5.6 and band neutrophil percentage of 31%. The patient was initially observed on the telemetry unit for sepsis secondary to pneumonia and urinary tract infection. The patient's antibiotics were switched to azithromycin and Rocephin along with Zosyn being continued. The patient's initial procalcitonin was 31, and this was subsequently trended down to upon discharge of 2.6. The patient's initial BNP was 1530, she was started on Lasix therapy. She responded well to this. In the afternoon of August 18, the patient was noted to have an increasing oxygen requirement. Initially, she had just required 2 L of nasal cannula, but rapidly declined and was placed on high-flow nasal cannula and transitioned to the CU. The patient continued to require high-flow nasal cannula throughout the day on August 19 and was later transitioned back to nasal cannula on August 20. The patient then was able to transition off nasal cannula on the evening of August 21. The patient's blood cultures grew out 1/2 positive for group G strep and gram-positive rods. The patient's urine culture grew out E coli, which was sensitive to most antibiotics. Physical Therapy and Occupational Therapy evaluated the patient for potential placement; however, she did not meet any guidelines for further therapy. On the morning of August 22, 2020, the patient's IV antibiotics were discontinued and she was transitioned to p.o. Augmentin for which she will require an additional 5 days of therapy. The patient was also sent prescriptions for Lasix and lisinopril to continue at home. The patient does not have a primary care provider, and she was provided with a list of clinics in [facility] in order to establish care and for hospital followup. The patient was discharged to home in stable condition on the afternoon of August 22, 2020. CONDITION ON DISCHARGE: Stable. DISCHARGE INSTRUCTIONS: 1. Location: Home. 2. Diet: Heart healthy. 3. Activity: As tolerated. 4. Follow up to establish care with PCP in next 2 to 3 days. Job ID: [id number]
[2020-08-23] MEDS ORDERED: Lisinopril 10 MG TAB PO SCH (09:00)
== END 2020-08-22 15:40 | disposition home or self-care (01) | DRG 871 ==
LOC: EDBD 00:51 → ERS 00:51 → 2NO 05:24 → IMCU/EMU 09:53 → T4-B 08-20 15:27
PROVIDERS: ADMIT Family Medicine; ATTEND Family Medicine
DX: A40.3 Sepsis due to Streptococcus pneumoniae (principal); J18.9 Pneumonia, unspecified organism; R65.20 Severe sepsis without septic shock; J96.01 Acute respiratory failure with hypoxia; N39.0 Urinary tract infection, site not specified; J44.1 Chronic obstructive pulmonary disease with (acute) exacerbation; J44.0 Chronic obstructive pulmonary disease with (acute) lower respiratory infection; I24.8 Other forms of acute ischemic heart disease; M41.83 Other forms of scoliosis, cervicothoracic region; F17.210 Nicotine dependence, cigarettes, uncomplicated; R79.89 Other specified abnormal findings of blood chemistry; K59.00 Constipation, unspecified; F15.10 Other stimulant abuse, uncomplicated; R94.31 Abnormal electrocardiogram [ECG] [EKG]; Z90.710 Acquired absence of both cervix and uterus; R53.1 Weakness; Z20.828 Contact with and (suspected) exposure to other viral communicable diseases
CPT/HCPCS: 36415; 51701; 71045; 74177; 80053; 80306; 81003; 81015; 82553; 82805; 83605; 83880; 84145; 84484; 85025; 87040; 87077; 87086; 87149; 87186; 87449; 87899; 93005; 96361; 96365; J0456; J0696; J1650; J1940; J2543; J3370; J3490; J7050; Q9967; U0002

== ENCOUNTER 2021-03-08 16:52 | Emergency (ER) | payer OTHER, MEDICARE ==
[2021-03-08] MEDS ORDERED: HYDROcodone/Acetaminophen 10/325 mg Tablet ONE (18:02)
== END 2021-03-08 20:53 | disposition home or self-care (01) ==
LOC: ERS 16:52
DX: S52.502A Unspecified fracture of the lower end of left radius, initial encounter for closed fracture (principal); F17.210 Nicotine dependence, cigarettes, uncomplicated; W19.XXXA Unspecified fall, initial encounter
CPT/HCPCS: 25600

== ENCOUNTER 2021-11-09 23:31 | Emergency (ER) | payer MEDICARE, OTHER ==
[2021-11-10] MEDS ORDERED: Lidocaine 1% PF 5 ML VIAL ONE (00:22)
== END 2021-11-10 00:52 | disposition home or self-care (01) ==
LOC: ERS 23:31
DX: S62.616A Displaced fracture of proximal phalanx of right little finger, initial encounter for closed fracture (principal); F17.210 Nicotine dependence, cigarettes, uncomplicated; W06.XXXA Fall from bed, initial encounter
CPT/HCPCS: 29130